=== PATIENT | female | born 1990 | race African-American/Black ===

== ENCOUNTER 2021-05-05 14:39 | Emergency (ER) | payer OTHER, SELFPAY ==
[2021-05-05 15:24] VITALS: BP 128/83; PULSE 87; RESP 14; TEMP 36.9; O2SAT 99
--- NOTE | 2021-05-05 16:11 | ED_ITS ---
HPI - Dental/Oral General Chief complaint: Dental/Oral Stated complaint: R UPPER TEETH PAIN Time Seen by Provider: 05/05/21 15:26 History of Present Illness HPI Narrative: Patient is a 30-year-old female who presents ER with right-sided dental pain. Increasing pain over the last 2 days. Located over teeth #5 and 6 and at the base of tooth #32. There is slight swelling. Radiates to the right ear. No difficulty breathing or swallowing. Related Data Allergies Allergy/AdvReac Type Severity Reaction Status Date / Time No Known Allergies Allergy Unverified 06/23/15 13:01 Review of Systems Constitutional: Constitutional: Denies chills and Denies fever(s) ENT: Denies dysphagia, Denies nasal congestion and Denies sore throat Comments: Dental pain, ear pain Respiratory: Respiratory: Denies cough and Denies dyspnea Gastrointestinal: Gastrointestinal: Denies abdominal pain, Denies nausea and Denies vomiting PMFSH Past Medical History Medical History (Updated 05/05/21 @ 16:14 by Jose Angel Giron MD) Healthy female adult Surgical History Surgical History (Updated 05/05/21 @ 16:12 by Jose Angel Giron MD) No history of previous surgery Exam Narrative: Exam Narrative: GENERAL: Well-appearing, well-nourished, and in no acute distress. HEAD: Normocephalic, atraumatic. ENT: Mucous membranes moist. Slight facial swelling on the right side. No fluctuant abscess within the mouth. Tender to palpation above tooth # 5 and 6 as well as of the base of tooth 32 where there is fracture. Patient has poor dentition has multiple missing teeth. NECK: Supple. NEURO: Alert and oriented x3. PSYCH: Normal mood and affect. Course Course Emergency Course: Nothing to drain on exam. Discharge home with antibiotics and [place]. Vital Signs Vital signs: Vital Signs Temperature 98.5 F 05/05/21 15:24 Pulse Rate 87 05/05/21 15:24 Respiratory Rate 14 05/05/21 15:24 Blood Pressure 128/83 05/05/21 15:24 Pulse Oximetry 99 05/05/21 15:24 Temperature 98.5 F 05/05/21 15:24 Pulse Rate 87 05/05/21 15:24 Respiratory Rate 14 05/05/21 15:24 Blood Pressure 128/83 05/05/21 15:24 Pulse Oximetry 99 07/14/21 15:24 Discharge Plan Discharge Clinical Impression: Toothache Patient Disposition: Home, Self-Care Condition: Stable Instructions: Antibiotic Form, Toothache (ED) Additional Instructions: Follow-up with your dentist who is doing a root canal in your tooth. Return to the ER if you have increased pain, you have fever over 100.4 ?F, you cannot swallow, you cannot breathe, or you have a change in your voice. 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
[2021-05-05] MEDS: HYDROcodone/acetaminophen (*CRX) 5-325 MG TABLET 1 TAB PO (16:22)
== END 2021-05-05 16:27 | disposition home or self-care (01) ==
PROVIDERS: Emergency Provider Emergency Medicine
DX: K08.89 Other specified disorders of teeth and supporting structures (principal)
CPT/HCPCS: 99283; A9270